=== PATIENT | female | born 1995 | race Caucasian/White ===

== ENCOUNTER 2018-01-04 02:26 | Observation (INO) | payer MEDICAID ==
[~2018-01-04] VITALS: Ht 165.1 cm; Wt 89.8 kg
[2018-01-04] MEDS ORDERED: PREN1TAB78 MT (02:41)
== END 2018-01-04 04:21 | disposition home or self-care (01) ==
LOC: L&D 02:26
PROVIDERS: ADMIT Obstetrics & Gynecology; ATTEND Obstetrics & Gynecology
DX: O62.9 Abnormality of forces of labor, unspecified (principal); Z3A.37 37 weeks gestation of pregnancy
CPT/HCPCS: 99281; G0378; J7120; 96360; 96361